=== PATIENT | female | born 1950 | race Hispanic/Latino ===

== ENCOUNTER 2020-08-27 14:11 | Emergency (ER) | payer MEDICARE ==
[~2020-08-27] VITALS: Ht 160 cm; Wt 59.1 kg
[2020-08-27] MEDS ORDERED: CYCLOBENZAPRINE10 MG PO (14:55)
[2020-08-27] MEDS ORDERED: KETOROLAC TROMETHAMINE 30 MG/ML VIAL ONE (14:58)
[2020-08-27] MEDS ORDERED: KETOROLAC TROMETHAMINE 60 MG/2 ML VIAL IM ONE (15:00)
== END 2020-08-27 15:05 | disposition home or self-care (01) ==
LOC: FSED 14:52
DX: M54.5 Low back pain (principal); M25.551 Pain in right hip; G89.29 Other chronic pain
CPT/HCPCS: 81003; 96372; 99283; J1885

== ENCOUNTER 2022-04-30 10:23 | Emergency (ER) | payer MEDICARE ==
[~2022-04-30] VITALS: Ht 160 cm; Wt 57.6 kg
[~2022-04-30 10:23] MED LIST: CYCLOBENZAPRINE10 MG PO
== END 2022-04-30 11:08 | disposition home or self-care (01) ==
LOC: FSED 10:26
DX: R05.9 Cough, unspecified (principal); J06.9 Acute upper respiratory infection, unspecified; M54.9 Dorsalgia, unspecified; G89.29 Other chronic pain; H81.09 Meniere's disease, unspecified ear
CPT/HCPCS: 83518; 87400; 99282